=== PATIENT | male | born 1980 | race Caucasian/White ===

== ENCOUNTER 2020-12-11 14:11 | Emergency (ER) | payer OTHER ==
[2020-12-11 14:35] VITALS: TEMP 98.6; BMI 34.4
[2020-12-11] MEDS ORDERED: SODIUM CHLORIDE 500 ML IV STA (14:43)
[2020-12-11 15:21] LABS: BASO % 0.9 % (0-2.0); EOS % 2.7 % (0-4.5); HEMATOCRIT 38.4 % (35.4-49); HEMOGLOBIN 13.2 GM/dl (11.7-16.9); LYMPH % 28.7 % (8-40); MCH 29.7 pg (25.7-33.7); MCHC 34.4 g/dl (32.0-35.9); MEAN CELL VOLUME 86.2 fl (80-96); MEAN PLT VOLUME 9.6 fl (7.5-11.1); MONO % 6.2 % (3.8-10.2); NEUT % 61.5 % (42.8-82.8); PLATELET COUNT 239 10^3/uL (134-434); RBC 4.46 M/mm3 (4.00-5.60); RDW 10.9 % (11.9-15.9); WHITE BLOOD COUNT 7.5 K/mm3 (4.0-10.8)
[2020-12-11 15:36] LABS: ALBUMIN 4.1 g/dl (3.4-5.0); BILIRUBIN,TOTAL 0.3 mg/dl (0.2-1); CALCIUM 8.5 mg/dl (8.5-10); MAGNESIUM 1.8 mg/dL (1.8-2.4); TOT PROT 7.2 g/dl (6.4-8.2)
[2020-12-11 17:22] VITALS: BP 118/61; PULSE 71
== END 2020-12-11 17:21 | disposition home or self-care (01) ==
LOC: FER 14:11
PROC: 3E0337Z Introduction of Electrolytic and Water Balance Substance into Peripheral Vein, Percutaneous Approach (ICD-10-PCS; principal; 2020-12-11)
DX: R55 Syncope and collapse (principal); T67.5XXA Heat exhaustion, unspecified, initial encounter
CPT/HCPCS: 36415; 71045-TC-FY; 80053; 83735; 84484; 85025; 93005; 99285-25